=== PATIENT | female | born 1960 | race Caucasian/White ===

== ENCOUNTER → 2016-11-08 | Outpatient (CLI) | payer OTHER ==
[~2016-11-08] MED LIST: ACETAMINOPHEN325 MG PO; ACTOS PO; AL-MAG HYDROX-S30 M1 PO; ALPRAZOLAM PO; ALPRAZOLAM0.25 MG PO; AMITRIPTYLINE H75 MG PO; AMITRYPTYLINE PO; BAYER CHEWABLE81 MG PO; BUTALB-APAP-CA1 EACH PO; BUTALBITAL-ASP-1 CA1 PO; CLOPIDOGREL75 MG PO; COREG6.25 M1 PO; CYMBALTA PO; CYMBALTA30 MG PO; DULOXETINE HCL60 MG PO; FERRO-TIME325 MG PO; FIORICET 50-301 EACH PO; FIORICET1 TAB PO; FIORINAL 50-321 EACH PO; GLUCOPHAGE XR500 MG PO; GLUCOTROL PO; HYDROCODON-ACE1 EAC9 PO; IMITREX PO; INVOKANA300 MG PO; IRON325 ( 651 PO; JANUVIA PO; JANUVIA25 MG PO; LEVOTHYROXINE137 MCG PO; LIPITOR PO; LIPITOR40 MG PO; LIPITOR80 MG PO; LISINOPRIL PO; MAG-OXIDE400 MG PO; METOPROLOL TART25 MG PO; MOTION RELIEF25 MG PO; NEURONTIN300 MG PO; NITROSTAT0.4 MG SL; NOVOLOG7030 SUBQ; PROAMATINE10 MG PO; PROTONIX PO; SODIUM CHLORI1000 ML; STERAPRED5 MG/DOSE1 PO; SYNTHROID PO; SYNTHROID125 PO; TRAVEL MOTION S25 MG PO; VITAL-D RX TABL1 TAB; VITAMIN D400 UNI2 PO; ZETIA PO
--- NOTE | ~2016-11-08 | CT2 ---
[facility] A Service of [facility] & [facility] RADIOLOGY TEXT RESULTS PATIENT: ANGELA MCKENNA LOCATION: [facility] : 60 UNIT #: [id number] AGE: [address]: Philip Roblero MD SEX: F ORDER DR: [id number] [facility] [address] [place], [place] [address] [id number] O MR#: [id number] Acc #: [id number] NAME: ANGELA MCKENNA : 1960 SEX: F STUDY DATE/TIME: 11/08/2016 14:22 UNIT: [facility] ROOM: STUDY DESCRIPTION: CT Abd and Pelv W Cont Attending Physician: Philip Roblero M.D. Ordering Physician: Philip Roblero M.D. Primary Care Physician: Cali Liao M.D. MEDICAL IMAGING REPORT This report is preliminary unless electronic signature is present EXAM CT of the abdomen and pelvis with contrast INDICATIONS Myelodysplastic syndrome. 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 This exam is requested for surveillance for metastatic disease. TECHNIQUE Axial CT images were obtained from dome of the diaphragm to the symphysis pubis following the administration of oral intravenous contrast material. This CT exam was performed with one or more of the following radiation dose reduction techniques: automatic exposure control, adjustment of mA and/or kV according to patient size, and iterative reconstruction. FINDINGS Images through the bases are clear. The gallbladder is surgically absent. Patient does appear to have diffuse hepatic steatosis. Spleen is within normal limits. Stomach and proximal small bowel appear unremarkable. Pancreas is mildly atrophic. Adrenal glands are within normal limits. Both kidneys appear normal. Uterus is surgically absent. Urinary bladder appears normal. There is no evidence of mechanical bowel obstruction. The patient appears to be status post right hemicolectomy. I do not see any free fluid or adenopathy within the abdomen or pelvis. Review of bony windows does not demonstrate any aggressive osseous abnormalities. IMPRESSION 1. No convincing evidence of recurrent residual disease. 2. Diffuse hepatic steatosis. 3. Changes of prior right hemicolectomy without any evidence of obstruction. [facility] A Service of [facility] & [facility] RADIOLOGY TEXT RESULTS PATIENT: ANGELA MCKENNA LOCATION: [facility] : 60 UNIT #: [id number] AGE: [address]: Philip Roblero MD SEX: F ORDER DR: Dictated by... Lisset Arambula M.D. THIS IS AN ELECTRONICALLY VERIFIED REPORT Lisset Arambula M.D. at 11/09/2016 4:46 PM AFF/to TD: 11/08/2016 21:32 JOB #: [id number] MEDICAL IMAGING REPORT Page 1 of 1 COPY
[2016-11-08 14:10] LABS: POC - CREATININE 0.67 mg/dL (0.44-1.03); POC - GFR >60.0 mL/min (>60)
== END | disposition home or self-care (01) ==
LOC: CCAT 12:41
PROVIDERS: Internal Medicine Medical Oncology
DX: C7A.020 Malignant carcinoid tumor of the appendix (principal); D46.9 Myelodysplastic syndrome, unspecified; K76.0 Fatty (change of) liver, not elsewhere classified; Z98.890 Other specified postprocedural states
CPT/HCPCS: 74177; 82565; Q9967